=== PATIENT | female | born 1985 | race Caucasian/White ===

== ENCOUNTER 2023-02-11 15:18 | Emergency (ER) | payer BC, OTHER ==
--- OUTSIDE RECORDS SUMMARY | 2023-02-11 15:27 | XMS REPORT | Continuity of Care Document ---
:1985 Author Organization [facility] t Address [address] [facility] [address] [place] [address] Care Team Providers Name Role Phone PCP, PATIENT DOES NOT HAVE A Primary Care Physician Unavaila TERESA Quiroga Attending Clinician Unavailable TERESA ALCALA Attending Clinician Unavailable Jamel Sotomayor MD Attending Clinician JAMEL SOTOMAYOR Attending Clinician Unavailable Tim Caldera DO Attending Clinician Doctor Unassigned, [place] Attending Clinician Unavailable Payers Payer Name Policy Type Policy Number Effective Date Expiration Date S ource [facility] [id number] 2019 00:00:00 Problems Condition Condition Condition Status Onset Resolution Last Treating Co mments Source Name Details Category Date Date Treatment Clinician Date Asthma Asthma Disease Active 1985- Univers 1-06 ity of 00:00: [place] 00 Medical Branch Allergies, Adverse Reactions, Alerts Allergy Allergy Status Severity Reaction(s) Onset Inactive Treating Comm ents Source Name Type Date Date Clinician Morphine Propensi Active Shortness of 2008-07 Univers ty to Breath 2-22 ity of adverse 00:00: [place] reaction 00 Medical s Branch MORPHINE DRUG Active Other-Cmnt 2008-07 Univ ers INGREDI 2-22 ity of 00:00: [place] 00 Medical Branch Aspirin Propensi Active Anaphylaxis 2006- Un karen ty to 9-10 ity of adverse 00:00: [place] reaction 00 Medical s Branch Coconut Propensi Active Anaphylaxis Un karen Oil ty to 9-10 ity of adverse 00:00: [place] reaction 00 Medical s Branch ASPIRIN DRUG Active Anaphylaxis Univ ers INGREDI 9-10 ity of 00:00: [place] 00 Medical Branch COCONUT DRUG Active Anaphylaxis Univ ers OIL INGREDI 9-10 ity of 00:00: [place] 00 Medical Branch Latex, Propensi Active Swelling Univer s Natural ty to 1-06 ity of Rubber adverse 00:00: [place] reaction 00 [facility] s Branch LATEX, Drug Active Hives [facility] NATURAL Class 1-06 ity of RUBBER 00:00: [place] 00 [facility] Social History Social Habit Start Date Stop Date Quantity Comments Source Alcohol intake 2021-11-24 2021-11-24 Ex-drinker [facility] 00:00:00 00:00:00 (finding) [facility] Exposure to 2021-11-09 2021-11-19 Not sure [facility] SARS-CoV-2 00:00:00 00:26:00 [facility] (event) [place] Tobacco use and 2020 2020 Never used Universit y of exposure 00:00:00 00:00:00 [facility] Sex [birth year] Universit y of 00:00:00 00:00:00 [facility] Smoking Status Start Date Stop Date Source Never smoker [facility] Medications Ordered Filled Start Stop Current Ordering Indication Dosage Frequency Signature Comments Components Source Medication Medication Date Date Medication? Clinician (SIG) Name Name fluconazole 2021- No [id number] 150mg Take 1 Univers 150 mg 11-20 tablet by ity of tablet 00:00: 04:59 mouth [place] 00 :00 every 72 Medical (seventy-t Branch wo) hours for 2 doses. ibuprofen-f 2021- No Unive rs amotidine 2-11-24 ity of ([place]) 00:00: 00:00 [place] 800-26.6 mg 00 :00 Medical per tablet Branch IBUPROFEN 2021- No Take one Uni vers 600 MG ORAL 04-10 tablet by it y of TAB 10:26: 00:00 mouth [place] 19 :00 every six Medical hours as Branch needed for pain ACETAMINOPH 2021- No Take one U nivers EN-CODEINE 04-10 to two ity of 300-30 MG 10:26: 00:00 tablets [place] ORAL TAB 17 :00 mouth Medical every six Branch hours as needed for pain 2021- No Take one Univ ers VIT-IRON 04-10 tablet by ity o f FUMARATE-FA 10:25: 00:00 [place] 60-1 MG 16 :00 daily Medical ORAL TAB Branch DOCUSATE 2021- No Take one Univ ers CALCIUM 240 04-10 capsule by i ty of MG ORAL CAP 10:25: 00:00 [place] 16 :00 daily as Medical needed for Branch constipati on FERROUS 2021- No Take one Unive rs SULFATE 300 04-10 tablet by it y of (60) MG 10:25: 00:00 mouth [place] ORAL TAB 16 :00 twice Medical daily Branch Immunizations Ordered Filled Immunization Date Status Comments [facility] e Immunization Name Name SARS-COV-2 COVID-19 2020-11-28 Completed Unive rsity of KRISTAL/J&J VACCINE 00:00:00 [facility] Influenza Virus 2020 Completed Universit y of Vaccine Quad .5 mL 00:00:00 [facility] 6+ MO Branch Vital Signs Vital Name Observation Time Observation Value Comments Source Systolic blood 2021-11-20 14:44:00 105 mm[Hg] Univer sity of pressure [facility] Diastolic blood 2021-11-20 14:44:00 72 mm[Hg] Unive rsity of pressure [facility] Heart rate 2021-11-20 14:30:00 83 /min Universi ty [facility] Body temperature 2021-11-20 14:30:00 36.56 Mely Univ ersity of [facility] Respiratory rate 2021-11-20 14:30:00 18 /min Univ ersity of [facility] Body height 2021-11-20 14:30:00 162.6 cm [facility] Body weight 2021-11-20 14:30:00 138.256 kg [facility] BMI 2021-11-20 14:30:00 52.32 kg/m2 [facility] Procedures This patient has no known procedures. Encounters Start End Encounter Admission Attending Care Care Encounter Source Date/Time Date/Time Type Type Clinicians Facility Department ID 2022-11-20 2022-11-20 Outpatient R [facility] B [id number] Univers 09:00:00 09:00:00 [facility] 2021-11-20 2021-11-20 Office Jamel Sotomayor [facility] [id number] Univers 09:00:00 09:52:31 Visit ALONDRA [id number] it y of [id number] [facility] [id number] [facility] [address] [place] 2021-11-20 2021-11-20 Outpatient R JAMEL SOTOMAYOR [facility] [id number] Univers 09:00:00 09:52:31 ity [facility] 2021-11-20 2021-11-20 Outpatient R JAMEL SOTOMAYOR [facility] [id number] Univers 09:00:00 [facility] 2021-08-07 2021-08-07 Outpatient R JAMEL SOTOMAYOR [facility] [id number] Univers 09:00:00 09:00:00 ity [facility] 2020-10-17 2020-10-17 Patient Werner OKULICES [id number] Univers 00:00:00 00:00:00 Outreach Tim PRIMARY [id number] i ty of [facility] [id number] [place] [phone] Ma dical [address] [place] [address] 2020 2020 Outpatient R JAMEL SOTOMAYOR [facility] [id number] Univers 09:30:00 09:30:00 ity [facility] 2020 2020 Orders Doctor SORIA [id number] Univers 00:00:00 00:00:00 Only Unassigned, ELAYNE [id number] ity of [place] [facility] [id number] Alan as [phone] [facility] 009 Branch Results This patient has no known results.
[2023-02-11] MEDS ORDERED: IBUPROFEN 400 MG TAB ONE (15:56)
--- NOTE | 2023-02-11 17:25 | RAD REPORT ---
EXAM DESCRIPTION: RAD - Hand Right 3 View - 02/11/2023 5:16 pm CLINICAL HISTORY: Right hand pain status post injury FINDINGS: No fracture or dislocation is seen.
--- NOTE | 2023-02-11 17:27 | ER ---
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 There's no cut or bleeding, but I haven't been able to move it and it's been really painful". Coronavirus screen: At this time, the client does not indicate any symptoms associated with coronavirus-19. Ebola Screen: No symptoms or risks identified at this time. Initial Sepsis Screen: Does the patient meet any 2 criteria? No. Patient's initial sepsis screen is negative. Does the patient have a suspected source of infection? No. Patient's initial sepsis screen is negative. Risk Assessment: Do you want to hurt yourself or someone else? Patient reports no desire to harm self or others. Onset of symptoms was February 11, 2023. 15:41 Method Of Arrival: Ambulatory [facility] 15:41 Acuity: LYDIA 4 mb9 Triage Assessment: 15:44 General: Appears in no apparent distress. Behavior is calm, cooperative. Pain: mb9 Complains of pain in right hand Pain does not radiate. Pain currently is 10 out of 10 on a pain scale. Quality of pain is described as throbbing, Pain began suddenly, Is continuous, Aggravated by increased activity. EENT: No deficits noted. Neuro: Kerr Agitation-Sedation Scale (RASS): 0 - Alert and Calm Level of Consciousness is awake, alert, obeys commands, Oriented to person, place, time, situation, Appropriate for age. Cardiovascular: No deficits noted. Respiratory: Airway is patent Respiratory effort is even, unlabored, Respiratory pattern is regular, symmetrical. GI: No signs and/or symptoms were reported involving the gastrointestinal system. : No signs and/or symptoms were reported regarding the genitourinary system. Derm: Skin is pink, warm \\T\\ dry. Musculoskeletal: Range of motion: limited in right wrist. 17:39 Injury Description: Bruise. 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 - Social history:: Smoking status: Patient denies any tobacco usage or history of. Screenin:38 [facility] ED Fall Risk Assessment (Adult) Score/Fall Risk Level 0 - 2 = Low Risk. Abuse eh3 screen: Denies threats or abuse. Denies injuries from another. Nutritional screening: No deficits noted. Tuberculosis screening: No symptoms or risk factors identified. Assessment: 15:45 Reassessment: see triage assessment. mb9 17:28 Reassessment: No changes from previously documented assessment. Patient and/or family ll1 updated on plan of care and expected duration. Pain level reassessed. Vital Signs: 15:41 BP 124 / 72; Pulse 88; Resp 18; Temp 98.2; Pulse Ox 100% on R/A; Weight 140.61 kg; mb9 Height 5 ft. 4 in. ; Pain 10/10; 15:41 Body Mass Index 53.21 (140.61 kg, 162.56 cm) mb9 15:41 Pain Scale: Adult mb9 ED Course: 15:25 Patient arrived in ED. im 15:27 [facility] 15:27 Walter Pierre MD is Attending Physician. kb 15:43 Triage completed. mb9 15:43 Arm band placed on. mb9 17:18 Hand Right 3 View In Process Unspecified. EDMS 17:28 Patient placed in an exam room, on a stretcher. ll1 17:38 Patient has correct armband on for positive identification. Provided Education on: N/A. eh3 17:38 Ernesto wrap to right wrist and right hand. eh3 17:39 No provider procedures requiring assistance completed. Patient did not have IV access eh3 during this emergency room visit. Administered Medications: 15:47 Drug: Ibuprofen PO 800 mg Route: PO; mb9 17:40 Follow up: Response: No adverse reaction eh3 Medication: 17:39 VIS not applicable for this client. eh3 Outcome: 17:27 Discharge ordered by MD. driscoll 17:40 Discharged to home ambulatory. 3 17:40 Condition: stable 17:40 Discharge instructions given to patient, Instructed on discharge instructions, follow up and referral plans. Demonstrated understanding of instructions, follow-up care. 17:51 Patient left the ED. 3 Signatures: Dispatcher [employer] EDMS Jocelynn Leigh, EYELET OPERATOR-Shyla JAVIER-Alonso Blair RN RN 1 Nikki Watts RN RN 3 Tabitha Shore RN RN mb9 Mirtha Joshua
--- NOTE | 2023-02-11 17:27 | EDPHYS ---
Physician Documentation [facility] Name: Layne Bansal Age: 37 yrs Sex: Female : 1985 Arrival Date: 02/11/2023 Time: 15:18 Bed 9 Private MD: ED Physician Walter Pierre HPI: 02/11 16:25 This 37 yrs old presents to ER via Ambulatory with complaints of Hand Injury. kb 16:25 The patient or guardian reports decreased range of motion, pain, swelling, tenderness. kb The complaints affect the dorsum of right hand. Context: The problem was sustained at home, resulted from a direct blow, hit right hand on kitchen counter when standing from squating position. Onset: The symptoms/episode began/occurred today. Modifying factors: The symptoms are alleviated by nothing, the symptoms are aggravated by movement. Associated signs and symptoms: The patient has no apparent associated signs or symptoms. Severity of symptoms: At their worst the symptoms were moderate, in the emergency department the symptoms are unchanged. The patient has not experienced similar symptoms in the past. The patient has not recently seen a physician. 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 - Social history:: Smoking status: Patient denies any tobacco usage or history of. ROS: 16:23 Constitutional: Negative for fever, chills, and weight loss. kb 16:23 MS/extremity: Positive for pain, tenderness, of the right hand. 16:23 All other systems are negative. Exam: 16:23 Constitutional: This is a well developed, well nourished patient who is awake, alert, kb and in no acute distress. Head/Face: Normocephalic, atraumatic. ENT: Moist Mucous membranes Cardiovascular: Regular rate and rhythm with a normal S1 and S2. No gallops, murmurs, or rubs. No pulse deficits. Respiratory: Respirations even and unlabored. No increased work of breathing. Talking in full sentences Skin: Warm, dry with normal turgor. Normal color. Neuro: Awake and alert, GCS 15, oriented to person, place, time, and situation. Moves all extremities. Normal gait. 16:23 Musculoskeletal/extremity: Extremities: grossly normal except: noted in the dorsum of right hand: contusion, decreased ROM, pain, tenderness, ROM: limited active range of motion, Circulation is intact in all extremities. Sensation intact. Vital Signs: 15:41 BP 124 / 72; Pulse 88; Resp 18; Temp 98.2; Pulse Ox 100% on R/A; Weight 140.61 kg; mb9 Height 5 ft. 4 in. ; Pain 10/10; 15:41 Body Mass Index 53.21 (140.61 kg, 162.56 cm) mb9 15:41 Pain Scale: Adult mb9 MDM: 15:38 Patient medically screened. kb 16:25 Differential diagnosis: dislocation, closed fracture, contusion. Data reviewed: vital kb signs, nurses notes. 17:26 Counseling: I had a detailed discussion with the patient and/or guardian regarding: the kb historical points, exam findings, and any diagnostic results supporting the discharge/admit diagnosis, radiology results, the need for outpatient follow up, a family practitioner, to return to the emergency department if symptoms worsen or persist or if there are any questions or concerns that arise at home. 02/11 16:58 Order name: Hand Right 3 View; Complete Time: 17:26 EDMS Administered Medications: 15:47 Drug: Ibuprofen PO 800 mg Route: PO; mb9 17:40 Follow up: Response: No adverse reaction eh3 Disposition: 17:52 Co-signature as Attending Physician, Walter Pierre MD I reviewed the patient's care rn provided by the Advanced Practice Provider and agree with the diagnosis and treatment plan. Disposition Summary: 02/11/23 17:27 Discharge Ordered Location: Home kb Condition: Stable kb Diagnosis - Contusion of right hand kb Followup: kb - With: Emergency Department - When: As needed - Reason: Worsening of condition Followup: kb - With: Private Physician - When: 2 - 3 days - Reason: Recheck today's complaints, Continuance of care, Re-evaluation by your physician Discharge Instructions: - Discharge Summary Sheet kb - Hand Contusion, [id number] kb Forms: - Medication Reconciliation Form kb - Thank You Letter kb - Antibiotic Education kb - Prescription Opioid Use kb - Patient Portal Instructions kb - Work release form eh3 Signatures: Dispatcher [employer] EDMS Jocelynn Leigh, HEADER SETUP OPERATOR-C HEADER SETUP OPERATOR-Walter Quan MD MD rn Breneman, Tabitha Campbell RN RN mb9 Nikki Watts RN 3 Corrections: (The following items were deleted from the chart) 17:16 17:10 Hand Right 2 View+RAD.RAD.BRZ ordered. EDMS EDMS 17:16 17:12 Hand Right 3 View+RAD.RAD.BRZ ordered. EDMS EDMS
[2023-02-11 21:00] VITALS: BP 124/72; TEMP 98.2; O2SAT 100
== END 2023-02-11 17:51 | disposition home or self-care (01) ==
LOC: ER 15:18
DX: S60.221A Contusion of right hand, initial encounter (principal); W22.09XA Striking against other stationary object, initial encounter; Y92.090 Kitchen in other non-institutional residence as the place of occurrence of the external cause; Z88.6 Allergy status to analgesic agent; Z91.040 Latex allergy status; J45.909 Unspecified asthma, uncomplicated
CPT/HCPCS: 99284